=== PATIENT | male | born 1975 | race Caucasian/White ===

== ENCOUNTER → 2023-04-15 09:01 | Outpatient (CLI) | payer BC, SELFPAY ==
[2023-04-15 17:12] LABS: Hemoglobin A1C 5.8 % (4.0-6.0)
== END ==
PROVIDERS: PCP Nurse Practitioner Psychiatric/Mental Health; Visit Provider Nurse Practitioner Psychiatric/Mental Health
DX: Z79.899 Other long term (current) drug therapy (principal)
CPT/HCPCS: 83036